=== PATIENT | male | born 2000 | race Caucasian/White ===

== ENCOUNTER 2022-12-27 07:49 | Emergency (ER) | payer OTHER ==
[~2022-12-27] VITALS: Ht 172.7 cm; Wt 73.9 kg
[2022-12-27] MEDS ORDERED: ISOT40CA5 PO (07:58)
[2022-12-27] MEDS ORDERED: NS 1,000 ML IV ONE (08:20)
[2022-12-27 09:03] LABS: BASO # 0.1 10^3/uL (0.0-0.2); BASO % 0.8 % (0.0-1.0); EOS # 0.2 10^3/uL (0.0-0.5); EOS % 2.5 % (0.0-3.0); HEMATOCRIT 46.8 % (42.0-52.0); HEMOGLOBIN 15.6 g/dl (13.5-17.5); LYMPH # 1.4 10^3/uL (1.5-5.0); LYMPH % 21.3 % (24.0-44.0); MEAN CORPUSCULAR HEMOGLOBIN 29.4 pg (27.0-33.0); MEAN CORPUSCULAR HGB CONC 33.3 g/dl (32.0-36.5); MEAN CORPUSCULAR VOLUME 88.1 fl (80.0-96.0); MONO # 0.7 10^3/uL (0.0-0.8); MONO % 10.3 % (2.0-8.0); NEUTROPHILS # 4.2 10^3/uL (1.5-8.5); NEUTROPHILS % 64.9 % (36.0-66.0); PLATELET COUNT, AUTOMATED 162 10^3/uL (150-450); RED BLOOD COUNT 5.31 10^6/uL (4.30-6.10); WHITE BLOOD COUNT 6.4 10^3/uL (4.0-10.0)
[2022-12-27 09:35] LABS: LIPASE 39 U/L (12-53)
[2022-12-27 09:37] LABS: ALBUMIN 3.7 G/DL (3.2-5.2); ALKALINE PHOSPHATASE 68 U/L (46-116); ALT/SGPT 238 U/L (7.0-40); AST/SGOT 88 U/L (<34); BILIRUBIN,DIRECT 0.2 MG/DL (<0.4); BILIRUBIN,TOTAL 0.4 MG/DL (0.3-1.2); BLOOD UREA NITROGEN 15 MG/DL (9-23); CALCIUM LEVEL 8.6 MG/DL (8.5-10.1); CARBON DIOXIDE LEVEL 29 MMOL/L (20-31); CHLORIDE LEVEL 105 MMOL/L (98-107); CREATININE FOR GFR 0.95 MG/DL (0.70-1.30); GLOMERULAR FILTRATION RATE > 60.0 (>60); GLUCOSE, FASTING 80 MG/DL (60-100); SODIUM LEVEL 138 MMOL/L (136-145); TOTAL PROTEIN 6.7 G/DL (5.7-8.2)
[2022-12-27 12:30] VITALS: BP 119/72
== END 2022-12-27 12:31 | disposition home or self-care (01) ==
LOC: M ED 07:49
DX: A08.32 Astrovirus enteritis (principal); R74.01 Elevation of levels of liver transaminase levels; F10.10 Alcohol abuse, uncomplicated; Z79.899 Other long term (current) drug therapy